=== PATIENT | female | born 1995 | race Two or more races ===

== ENCOUNTER 2018-02-10 12:04 | Emergency (ER) | payer OTHER ==
[~2018-02-10] VITALS: Ht 165.1 cm; Wt 113.6 kg
[2018-02-10 13:37] VITALS: BP 137/95
== END 2018-02-10 13:45 | disposition home or self-care (01) ==
LOC: EMS 12:05
DX: H66.91 Otitis media, unspecified, right ear (principal)
CPT/HCPCS: 99283